=== PATIENT | male | born 1945 | race Caucasian/White ===

== ENCOUNTER 2016-06-16 08:37 | Outpatient (CLI) | payer MEDICARE, OTHER ==
[2016-06-16 08:59] LABS: Bilirubin Negative (Negative); Blood, Urine Negative (Negative); Clarity Clear (Clear); Glucose, Urine (Dipstick) Negative (Negative); Leukocyte Negative (Negative); Nitrite Negative (Negative); Protein, Urine (Dipstick) Negative (Neg-Trace); Urobilinogen 0.2 mg/dL (0.2-1.0); pH, Urine 5.5 (5.0-9.0)
[2016-06-16 09:23] LABS: Bacteria/HPF Rare-Few HPF (None Seen); Other Microscopic Description NO; RBC/HPF None Seen HPF (0-3); Squamous Epithelial 0-3 HPF (0-3); WBC/HPF 0-3 HPF (0-3)
== END 2016-06-16 08:38 | disposition home or self-care (01) ==
LOC: NAV LAB 08:37
PROVIDERS: ATTEND Urology
DX: N40.0 Benign prostatic hyperplasia without lower urinary tract symptoms (principal); R35.1 Nocturia
CPT/HCPCS: 81001; 87086

== ENCOUNTER 2016-06-28 12:39 | Outpatient (CLI) | payer MEDICARE, OTHER ==
[2016-06-28 13:54] LABS: ALT (SGPT) 17 U/L (8-55); AST (SGOT) 21 U/L (5-34); Alkaline Phosphatase 109 U/L (40-150); Anion Gap 15 mmol/L (10-20); Bilirubin, Total 0.4 mg/dL (0.2-1.2); Calc. Creatinine Clearance 0 mL/min (70-130); Calcium 9.4 mg/dL (7.8-10.44); Carbon Dioxide 25 mmol/L (23-31); Cardiac Risk 1.9 (Less than 4.5); Chloride 106 mmol/L (98-107); Cholesterol 122 mg/dL (< 200 Desired); Estimated GFR-MDRD 55; Glucose 104 mg/dL (80-115); HDL Cholesterol 63 mg/dL (>60 Neg Risk); LDL Cholesterol, Calculated 46 mg/dL; Potassium 4.2 mmol/L (3.5-5.1); Sodium 142 mmol/L (136-145); Triglycerides 65 mg/dL (Less than 150)
[2016-06-28 14:31] LABS: BUN (Urea Nitrogen) 18 mg/dL (8.4-25.7)
== END 2016-06-28 12:40 | disposition home or self-care (01) ==
LOC: NAVSJIPCSP 12:39
PROVIDERS: ATTEND Internal Medicine Cardiovascular Disease
DX: E78.00 Pure hypercholesterolemia, unspecified (principal)
CPT/HCPCS: 36415; 80053; 80061

== ENCOUNTER 2016-08-17 08:27 | Outpatient (CLI) | payer MEDICARE, OTHER ==
[2016-08-17 12:28] LABS: #Basophils 0.1 thou/uL (0.0-0.2); #Eosinphils 0.2 thou/uL (0.0-0.7); #Lymphocytes 2.9 thou/uL (1.20-3.40); #Monocytes 0.9 thou/uL (0.11-0.59); #Neutrophils 6.1 thou/uL (1.40-6.50); %Basophils 0.9 % (0.0-1.0); %Eosinophils 2.2 % (0.0-10.0); %Lymphocytes 28.1 % (21.0-51.0); %Monocytes 9.2 % (0.0-10.0); %Neutrophils 59.6 % (42.0-75.0); Hemoglobin 11.7 g/dL (14.0-18.0); Mean Corpuscular HGB CONC 32.2 g/dL (32.0-36.0); Mean Corpuscular Hemoglobin 29.1 pg (27.0-31.0); Mean Corpuscular Volume 90.3 fl (80.0-94.0); Mean Platelet Volume 7.7 fL (7.4-10.4); Platelet Count 322 thou/uL (130-400); RBC Distribution Width 14.7 % (11.5-14.5); Red Blood Cell (RBC) Count 4.01 mill/uL (4.70-6.10); White Blood Cell (WBC) Count 10.2 thou/uL (4.8-10.8)
[2016-08-17 12:52] LABS: ALT (SGPT) 17 U/L (8-55); AST (SGOT) 20 U/L (5-34); Albumin 4.1 g/dL (3.4-4.8); Alkaline Phosphatase 98 U/L (40-150); Anion Gap 17 mmol/L (10-20); BUN (Urea Nitrogen) 16 mg/dL (8.4-25.7); Bilirubin, Direct 0.3 mg/dL (0.1-0.3); Bilirubin, Total 0.6 mg/dL (0.2-1.2); Calc. Creatinine Clearance 0 mL/min (70-130); Calcium 9.4 mg/dL (7.8-10.44); Carbon Dioxide 23 mmol/L (23-31); Cardiac Risk 2.1 (Less than 4.5); Chloride 108 mmol/L (98-107); Cholesterol 118 mg/dl (< 200 Desired); Estimated GFR-MDRD 60; Glucose 118 mg/dL (80-115); HDL Cholesterol 55 mg/dL (>60 Neg Risk); LDL Cholesterol, Calculated 43 mg/dL; Potassium 4.2 mmol/L (3.5-5.1); Sodium 144 mmol/L (136-145); Triglycerides 98 mg/dL (Less than 150)
[2016-08-17 12:53] LABS: Hemoglobin A1c 6.3 % (4.0-6.0)
== END 2016-08-17 08:28 | disposition home or self-care (01) ==
LOC: NAVSJIPCSP 08:27
PROVIDERS: ATTEND Family Medicine
DX: E11.9 Type 2 diabetes mellitus without complications (principal); I10 Essential (primary) hypertension; Z79.899 Other long term (current) drug therapy
CPT/HCPCS: 36415; 80048; 80061; 80076; 83036; 84443; 85025

== ENCOUNTER 2016-11-22 12:11 | Outpatient (CLI) | payer MEDICARE ==
[2016-11-22 16:01] LABS: ALT (SGPT) 21 U/L (8-55); AST (SGOT) 18 U/L (5-34); Albumin 4.1 g/dL (3.4-4.8); Alkaline Phosphatase 96 U/L (40-150); Anion Gap 18 mmol/L (10-20); BUN (Urea Nitrogen) 21 mg/dL (8.4-25.7); Bilirubin, Total 0.4 mg/dL (0.2-1.2); Calc. Creatinine Clearance 0 mL/min (70-130); Calcium 9.4 mg/dL (7.8-10.44); Carbon Dioxide 22 mmol/L (23-31); Cardiac Risk 1.8 (Less than 4.5); Chloride 106 mmol/L (98-107); Cholesterol 125 mg/dl (< 200 Desired); Estimated GFR-MDRD 57; Globulin 2.9 g/dL (2.4-3.5); Glucose 128 mg/dL (80-115); HDL Cholesterol 70 mg/dL (>60 Neg Risk); LDL Cholesterol, Calculated 47 mg/dL; Potassium 4.7 mmol/L (3.5-5.1); Sodium 141 mmol/L (136-145); Triglycerides 38 mg/dL (Less than 150)
[2016-11-22 16:37] LABS: Hemoglobin A1c 6.8 % (4.0-6.0)
[2016-11-22 16:38] LABS: Bilirubin, Direct 0.2 mg/dL (0.1-0.3)
[2016-11-22 19:21] LABS: #Basophils 0.1 thou/uL (0.0-0.2); #Eosinphils 0.1 thou/uL (0.0-0.7); #Lymphocytes 2.2 thou/uL (1.20-3.40); #Monocytes 1.1 thou/uL (0.11-0.59); #Neutrophils 5.5 thou/uL (1.40-6.50); %Basophils 0.9 % (0.0-1.0); %Eosinophils 0.9 % (0.0-10.0); %Lymphocytes 24.4 % (21.0-51.0); %Monocytes 12.6 % (0.0-10.0); %Neutrophils 61.2 % (42.0-75.0); Anisocytosis SLIGHT = 6-15 cells (100X) (0-5/hpf); Crenated RBC MODERATE= 6-15 cells (100X) (None Seen); Hemoglobin 12.3 g/dL (14.0-18.0); MDiff Complete? YES; Mean Corpuscular HGB CONC 31.6 g/dL (32.0-36.0); Mean Corpuscular Hemoglobin 28.6 pg (27.0-31.0); Mean Corpuscular Volume 90.6 fl (80.0-94.0); Mean Platelet Volume 8.1 fL (7.4-10.4); PLT Morphology Comment Appears Adequate; Platelet Count 299 thou/uL (130-400); RBC Distribution Width 13.4 % (11.5-14.5); Red Blood Cell (RBC) Count 4.28 mill/uL (4.70-6.10); White Blood Cell (WBC) Count 8.9 thou/uL (4.8-10.8)
[2016-11-23 11:58] LABS: Bacteria/HPF Rare-Few HPF (None Seen); Bilirubin Negative (Negative); Blood, Urine Negative (Negative); Clarity Clear (Clear); Glucose, Urine (Dipstick) Negative (Negative); Leukocyte Negative (Negative); Nitrite Negative (Negative); Protein, Urine (Dipstick) Negative (Neg-Trace); RBC/HPF 0-3 HPF (0-3); Specific Gravity, Urine 1.026 (1.002-1.036); Squamous Epithelial 0-3 HPF (0-3); Urobilinogen 0.2 mg/dL (0.2-1.0); WBC/HPF 0-3 HPF (0-3); pH, Urine 5.5 (5.0-9.0)
[2016-11-23 17:56] LABS: Creatinine, Urine 227.38 mg/dL (63-166); Microalbumin/Creat Ratio 4.4 mg/g (Less than 30)
== END 2016-11-22 12:12 | disposition home or self-care (01) ==
LOC: NAV LABSP 12:11 → NAVSJIPCSP 12:12
PROVIDERS: ATTEND Internal Medicine Cardiovascular Disease
DX: Z12.5 Encounter for screening for malignant neoplasm of prostate (principal); I25.5 Ischemic cardiomyopathy; E78.00 Pure hypercholesterolemia, unspecified; N43.41 Spermatocele of epididymis, single; N40.0 Benign prostatic hyperplasia without lower urinary tract symptoms; R35.1 Nocturia; E11.9 Type 2 diabetes mellitus without complications; I10 Essential (primary) hypertension; Z79.899 Other long term (current) drug therapy
CPT/HCPCS: 36415; 80053; 80061; 81001; 82043; 82248; 83036; 84443; 85025; 87086; G0103

== ENCOUNTER 2017-01-03 13:40 | Emergency (ER) | payer MEDICARE ==
[2017-01-03] MEDS ORDERED: Lidocaine 1% 20 ML MDV ONE (14:55)
[2017-01-03] MEDS ORDERED: Bacitracin Zinc 1 Packet ONE (15:24)
== END 2017-01-03 15:30 | disposition home or self-care (01) ==
LOC: NAV ERS 13:40
DX: S01.312A Laceration without foreign body of left ear, initial encounter (principal); I25.10 Atherosclerotic heart disease of native coronary artery without angina pectoris; E11.9 Type 2 diabetes mellitus without complications; E78.5 Hyperlipidemia, unspecified; I10 Essential (primary) hypertension; F32.9 Major depressive disorder, single episode, unspecified; Z79.82 Long term (current) use of aspirin; Z79.84 Long term (current) use of oral hypoglycemic drugs; Z79.899 Other long term (current) drug therapy; W22.8XXA Striking against or struck by other objects, initial encounter
CPT/HCPCS: 12011; J2001

== ENCOUNTER 2017-01-10 08:45 | Emergency (ER) | payer MEDICARE | END 2017-01-10 09:09 | disposition home or self-care (01) | LOC: NAV ERS 08:45 | DX: S01.312D Laceration without foreign body of left ear, subsequent encounter (principal); I25.10 Atherosclerotic heart disease of native coronary artery without angina pectoris; E11.9 Type 2 diabetes mellitus without complications; E78.5 Hyperlipidemia, unspecified; I10 Essential (primary) hypertension; F32.9 Major depressive disorder, single episode, unspecified; Z79.02 Long term (current) use of antithrombotics/antiplatelets; Z79.82 Long term (current) use of aspirin; Z79.84 Long term (current) use of oral hypoglycemic drugs; Z79.899 Other long term (current) drug therapy; X58.XXXD Exposure to other specified factors, subsequent encounter ==

== ENCOUNTER 2020-02-14 23:15 | Emergency (ER) | payer MEDICARE ==
--- NOTE | 2020-02-15 00:10 | RAD ---
Exam: XR Ankle Lt 3 View STANDARD HISTORY: Left ankle pain after a fall. COMPARISON: None FINDINGS: Left ankle pain after a fall. There are osseous densities seen inferior to the medial and lateral mal leolus which appear corticated and may represent remote avulsion injuries. There is a lucency in the region of the posterior malleolus which is thought to be related to a more remote injury and frac ture as opposed to an acute fracture. No definitive acute fracture is seen. Ankle mortise is congruent posterior plantar calcaneal enthesophytes are seen. Vascular calcifications are seen at the ankle with surgical clips overlying subcutaneous soft tissues at the medial left ankle.. IMPRESSION: Findings most suggestive of chronic changes involving the left ankle. A definite acute fracture or di slocation is not appreciated.
--- NOTE | 2020-02-15 00:12 | RAD ---
Exam: XR Foot Lt 3 View STANDARD HISTORY: Left ankle pain after a fall one day ago. COMPARISON: None FINDINGS: The Lisfranc joint is normally aligned. No fracture or dislocation is seen involving the left foot. 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 Corticated osseous densities are seen adjacent to the medial and lateral malleolus suggesting remote avulsion injuries. Irregulari ty involving the posterior malleolus is likely due to remote injury as well. 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 Posterior and plantar calcaneal enthesophytes are identified. Metal lic clips overlie the ankle. IMPRESSION: No acute osseous abnormality is identified.
== END 2020-02-15 00:55 | disposition home or self-care (01) ==
LOC: NAV ERS 23:15
DX: S93.402A Sprain of unspecified ligament of left ankle, initial encounter (principal); I47.1 Supraventricular tachycardia; E11.9 Type 2 diabetes mellitus without complications; I25.10 Atherosclerotic heart disease of native coronary artery without angina pectoris; I10 Essential (primary) hypertension; Z79.899 Other long term (current) drug therapy; Z79.82 Long term (current) use of aspirin; Z79.84 Long term (current) use of oral hypoglycemic drugs; X50.1XXA Overexertion from prolonged static or awkward postures, initial encounter
CPT/HCPCS: 93005; 94760

== ENCOUNTER 2022-03-12 09:54 | Emergency (ER) | payer MEDICARE ==
[2022-03-12 10:54] LABS: ALT (SGPT) 17 U/L (8-55); Albumin 3.4 g/dL (3.4-4.8); Alkaline Phosphatase 117 U/L (40-110); Anion Gap 15 mmol/L (10-20); BUN (Urea Nitrogen) 17 mg/dL (8.4-25.7); Bilirubin, Total 0.5 mg/dL (0.2-1.2); Calc. Creatinine Clearance 0 mL/min (70-130); Calcium 9.2 mg/dL (7.8-10.44); Carbon Dioxide 26 mmol/L (23-31); Chloride 103 mmol/L (98-107); Estimated GFR 48; Globulin 4.1 g/dL (2.4-3.5); Glucose 271 mg/dL (83-110); Potassium 3.8 mmol/L (3.5-5.1); Protein, Total 7.5 g/dL (5.8-8.1); Sodium 140 mmol/L (136-145)
[2022-03-12 10:56] LABS: Hemoglobin 13.5 g/dL (14.0-18.0); Mean Corpuscular HGB CONC 33.2 g/dL (32.0-36.0); Mean Corpuscular Volume 90.2 fl (78.0-98.0); Mean Platelet Volume 8.9 fL (7.4-10.4); Platelet Count 464 10x3/uL (130-400); RBC Distribution Width 11.8 % (11.5-14.5); Red Blood Cell (RBC) Count 4.49 mill/uL (4.70-6.10); White Blood Cell (WBC) Count 26.3 10x3/uL (4.8-10.8)
[2022-03-12 10:59] LABS: AST (SGOT) 19 U/L (5-34)
[2022-03-12 11:00] LABS: Manual Diff?? YES
[2022-03-12 11:01] LABS: MDiff Complete? YES
[2022-03-12 11:03] LABS: Band 2 % (5-11); Lymphocytes 10 % (21-51); Monocytes 11 % (0-10); Neutrophil 77 % (42-75); Platelet Morphology Comment Appears Increased; Toxic Granulation SLIGHT; Vacuoles SLIGHT
== END 2022-03-12 11:42 | disposition home or self-care (01) ==
LOC: NAV ERS 09:54
DX: J20.9 Acute bronchitis, unspecified (principal); I25.10 Atherosclerotic heart disease of native coronary artery without angina pectoris; E11.9 Type 2 diabetes mellitus without complications; E78.00 Pure hypercholesterolemia, unspecified; Z79.899 Other long term (current) drug therapy; Z79.82 Long term (current) use of aspirin; Z79.84 Long term (current) use of oral hypoglycemic drugs
CPT/HCPCS: 36415; 71046; 80053; 83880; 84484; 85025; 93005

== ENCOUNTER 2023-01-13 02:56 | Emergency (ER) | payer MEDICARE ==
[2023-01-13 03:33] LABS: #Basophils 0.1 thou/uL (0.0-0.2); #Eosinphils 0.4 thou/uL (0.0-0.7); #Lymphocytes 2.7 thou/uL (1.20-3.40); #Monocytes 1.5 thou/uL (0.11-0.59); #Neutrophils 7.3 thou/uL (1.40-6.50); %Basophils 0.9 % (0.0-1.0); %Eosinophils 3.4 % (0.0-10.0); %Lymphocytes 22.5 % (21.0-51.0); %Monocytes 12.6 % (0.0-10.0); %Neutrophils 60.7 % (42.0-75.0); Hematocrit 34.6 % (42.0-52.0); Hemoglobin 11.4 g/dL (14.0-18.0); Mean Corpuscular Hemoglobin 30.1 pg (27.0-31.0); Mean Corpuscular Volume 91.3 fl (78.0-98.0); Mean Platelet Volume 10.6 fL (7.4-10.4); Platelet Count 375 10x3/uL (130-400); RBC Distribution Width 12.6 % (11.5-14.5); Red Blood Cell (RBC) Count 3.79 mill/uL (4.70-6.10); White Blood Cell (WBC) Count 12.1 10x3/uL (4.8-10.8)
[2023-01-13 03:48] LABS: ALT (SGPT) 34 U/L (8-55); AST (SGOT) 30 U/L (5-34); Albumin 4.1 g/dL (3.4-4.8); Alkaline Phosphatase 127 U/L (40-110); Anion Gap 17 mmol/L (10-20); BUN (Urea Nitrogen) 26 mg/dL (8.4-25.7); Bilirubin, Total 0.5 mg/dL (0.2-1.2); Calc. Creatinine Clearance 0 mL/min (70-130); Calcium 9.4 mg/dL (7.8-10.44); Carbon Dioxide 24 mmol/L (23-31); Chloride 106 mmol/L (98-107); Estimated GFR 46; Globulin 3.2 g/dL (2.4-3.5); Glucose 158 mg/dL (83-110); Potassium 3.5 mmol/L (3.5-5.1); Protein, Total 7.3 g/dL (5.8-8.1); Sodium 143 mmol/L (136-145); Troponin I 0.066 ng/mL (< 0.028)
[2023-01-13 03:49] LABS: Magnesium 1.9 mg/dL (1.6-2.6)
[2023-01-13] MEDS ORDERED: Metoprolol Tartrate 5 MG/5 ML VIAL ONE (03:54)
[2023-01-13] MEDS ORDERED: Furosemide 20 MG/2 ML VIAL ONE (04:04)
[2023-01-13] MEDS ORDERED: Heparin 25,000 units/D5W 500 ML ONE (04:09)
[2023-01-13] MEDS ORDERED: Heparin 5,000 UNITS/ML VIAL ONE (04:09)
[2023-01-13 04:28] LABS: INR-International Normal Ratio 0.9
[2023-01-13 04:29] LABS: PTT 31.3 sec (22.9-36.1)
[2023-01-13] MEDS ORDERED: Nitroglycerin 2% Ointment 1 INCH/1 GM Packet ONE (04:48)
== END 2023-01-13 04:59 | disposition short-term general hospital (02) ==
LOC: NAV ERS 02:56
DX: I11.0 Hypertensive heart disease with heart failure (principal); I50.9 Heart failure, unspecified; R79.89 Other specified abnormal findings of blood chemistry; N17.9 Acute kidney failure, unspecified; E11.9 Type 2 diabetes mellitus without complications; E78.00 Pure hypercholesterolemia, unspecified; Z79.899 Other long term (current) drug therapy; Z79.84 Long term (current) use of oral hypoglycemic drugs
CPT/HCPCS: 36416; 71045; 80053; 83735; 83880; 84443; 84484; 85025; 85610; 85730; 93005; 94760; 96365; 96375; J1644; J1940

== ENCOUNTER 2023-10-05 15:55 | Outpatient (CLI) | payer OTHER | END 2023-10-05 15:56 | disposition home or self-care (01) | LOC: NAV RAD 15:55 | PROVIDERS: ATTEND Family Medicine | DX: M25.551 Pain in right hip (principal); M47.816 Spondylosis without myelopathy or radiculopathy, lumbar region; S70.01XA Contusion of right hip, initial encounter; M16.11 Unilateral primary osteoarthritis, right hip; M79.89 Other specified soft tissue disorders; R19.5 Other fecal abnormalities; I73.9 Peripheral vascular disease, unspecified; I70.8 Atherosclerosis of other arteries | CPT/HCPCS: 72100 ==